=== PATIENT | male | born 1965 | race Caucasian/White ===

== ENCOUNTER → 2020-08-04 | Outpatient (CLI) | payer OTHER | END | disposition home or self-care (01) | LOC: CVU 14:31 | PROVIDERS: ATTEND Internal Medicine Cardiovascular Disease | DX: I08.8 Other rheumatic multiple valve diseases (principal); E78.2 Mixed hyperlipidemia; R06.02 Shortness of breath; R07.89 Other chest pain | CPT/HCPCS: 93306; 93356 ==